=== PATIENT | male | born 1975 | race Caucasian/White ===

== ENCOUNTER 2017-08-07 01:00 | Emergency (ER) | payer OTHER ==
[~2017-08-07] VITALS: Ht 185.4 cm; Wt 108.9 kg
[~2017-08-07 01:00] MED LIST: CARISOPRODOL 3350 MG PO; FLEXERIL PO; FLOMAX0.4 MG PO; HYDROCODON-ACE1 EAC7 PO; HYDROCODONE-APA1 TA1 PO; MEDROL DOSPAK21 TA1 PO; NORCO 5-325 TA1 EACH PO
[2017-08-07 01:35] LABS: ABSOLUTE BASOPHILS 0.1 thou/uL (0.0-0.2); ABSOLUTE EOSINOPHILS 0.5 thou/uL (0.0-0.7); ABSOLUTE LYMPHOCYTES 3.3 thou/uL (0.8-5.3); ABSOLUTE MONOCYTES 0.9 thou/uL (0.0-1.2); ABSOLUTE NEUTROPHILS 5.3 thou/uL (1.6-8.1); BASOPHILS 1.1 %; EOSINOPHILS 5.3 %; HEMATOCRIT 43.6 % (42.0-52.0); HEMOGLOBIN 14.6 gm/dL (14.0-18.0); LYMPHOCYTES 32.9 %; MCH 30.3 pg (26.0-34.0); MCHC 33.4 g/dL (28.0-37.0); MCV 90.7 fL (80.0-100.0); MONOCYTES 8.7 %; MPV 7.4 fl. (7.2-11.1); NUCLEATED RBCS 0 /100WBC; PLATELET COUNT* 299 thou/uL (150-400); RBC 4.81 mil/uL (4.50-6.00); RDW-CV 13.1 % (10.5-14.5); WBC 10.2 thou/uL (4.0-11.0)
[2017-08-07 01:39] LABS: CALCIUM 7.9 mg/dL (8.5-10.1); CREATININE 1.1 mg/dL (0.6-1.3); POTASSIUM 3.3 mmol/L (3.5-5.1)
[2017-08-07 01:56] LABS: URINE BILIRUBIN NEGATIVE (Negative); URINE BLOOD TRACE (Negative); URINE CLARITY CLEAR; URINE COLOR YELLOW; URINE GLUCOSE-RANDOM NEGATIVE (Negative); URINE KETONES NEGATIVE (Negative); URINE LEUKOCYTES-REFLEX NEGATIVE (Negative); URINE NITRITE-REFLEX NEGATIVE (Negative); URINE PROTEIN TRACE (Negative); URINE SPECIFIC GRAVITY >= 1.030 (1.005-1.030); URINE UROBILINOGEN 0.2 E.U./dl (0.2-1.0)
[2017-08-07] MEDS ORDERED: ZOFRAN ODT4 MG PO (02:08)
[2017-08-07] MEDS ORDERED: PERCOCET 7.5-31 EACH PO (02:08)
[2017-08-07] MEDS ORDERED: FLOMAX0.4 MG PO (02:08)
[2017-08-07 03:05] VITALS: BP 109/71
== END 2017-08-07 03:05 | disposition home or self-care (01) ==
LOC: M.ERS 01:00
PROVIDERS: Emergency Medicine
DX: N20.1 Calculus of ureter (principal)

== ENCOUNTER → 2017-12-17 | Outpatient (CLI) | payer OTHER ==
[~2017-12-17] MED LIST changes: +PERCOCET 7.5-31 EACH PO; +ZOFRAN ODT4 MG PO
== END ==
LOC: M.RAD 14:26
DX: M25.461 Effusion, right knee (principal); Z72.89 Other problems related to lifestyle

== ENCOUNTER 2019-03-20 23:59 | Emergency (ER) | payer OTHER ==
[~2019-03-20] VITALS: Ht 185.4 cm; Wt 108.9 kg
[2019-03-21 01:13] LABS: ABSOLUTE BASOPHILS 0.1 thou/uL (0.0-0.2); ABSOLUTE EOSINOPHILS 0.6 thou/uL (0.0-0.7); ABSOLUTE LYMPHOCYTES 2.8 thou/uL (0.8-5.3); ABSOLUTE MONOCYTES 0.8 thou/uL (0.0-1.2); ABSOLUTE NEUTROPHILS 5.6 thou/uL (1.6-8.1); BASOPHILS 1.3 %; EOSINOPHILS 6.1 %; HEMATOCRIT 43.4 % (42.0-52.0); HEMOGLOBIN 14.9 gm/dL (14.0-18.0); LYMPHOCYTES 28.2 %; MCH 31.4 pg (26.0-34.0); MCHC 34.4 g/dL (28.0-37.0); MCV 91.3 fL (80.0-100.0); MPV 7.6 fl. (7.2-11.1); NUCLEATED RBCS 0 /100WBC; PLATELET COUNT* 305 thou/uL (150-400); POLYS 56.4 %; RBC 4.75 mil/uL (4.50-6.00); RDW-CV 13.4 % (10.5-14.5); WBC 9.9 thou/uL (4.0-11.0)
[2019-03-21 01:15] LABS: URINE BILIRUBIN NEGATIVE (Negative); URINE BLOOD NEGATIVE (Negative); URINE CLARITY CLEAR; URINE COLOR YELLOW; URINE GLUCOSE-RANDOM NEGATIVE (Negative); URINE KETONES NEGATIVE (Negative); URINE LEUKOCYTES-REFLEX NEGATIVE (Negative); URINE NITRITE-REFLEX NEGATIVE (Negative); URINE PROTEIN NEGATIVE (Negative); URINE SPECIFIC GRAVITY 1.025 (1.005-1.030); URINE UROBILINOGEN 0.2 E.U./dl (0.2-1.0)
[2019-03-21 01:21] LABS: CALCIUM 8.7 mg/dL (8.5-10.1); CREATININE 1.1 mg/dL (0.6-1.3)
[2019-03-21 01:26] LABS: ALBUMIN 3.5 g/dL (3.4-5.0); TOTAL BILIRUBIN 0.1 mg/dL (<0.1-1.0); TOTAL PROTEIN 6.7 g/dL (6.4-8.2)
[2019-03-21] MEDS ORDERED: TRAMADOL 50 MG50 MG PO (02:12)
[2019-03-21 02:24] VITALS: BP 122/86
== END 2019-03-21 02:24 | disposition home or self-care (01) ==
LOC: M.ERS 23:59
PROVIDERS: Emergency Medicine
DX: M54.5 Low back pain (principal); Z87.442 Personal history of urinary calculi; Z88.1 Allergy status to other antibiotic agents

== ENCOUNTER → 2020-02-11 | Outpatient (CLI) | payer OTHER ==
[~2020-02-11] MED LIST changes: +TRAMADOL 50 MG50 MG PO
== END ==
LOC: M.ULTRA 09:00
PROVIDERS: ATTEND Specialist
DX: K40.90 Unilateral inguinal hernia, without obstruction or gangrene, not specified as recurrent (principal); R19.09 Other intra-abdominal and pelvic swelling, mass and lump

== ENCOUNTER → 2020-02-25 | Outpatient (CLI) | payer OTHER | LOC: M.MRI 08:19 | PROVIDERS: ATTEND Specialist | DX: S83.241A Other tear of medial meniscus, current injury, right knee, initial encounter (principal); G89.29 Other chronic pain ==